=== PATIENT | female | born 1970 | race Two or more races ===

== ENCOUNTER 2018-03-27 14:50 | Outpatient (CLI) | payer OTHER | END 2018-03-27 14:59 | disposition home or self-care (01) | LOC: RAD 501 14:50 | DX: M19.042 Primary osteoarthritis, left hand (principal); M65.332 Trigger finger, left middle finger ==

== ENCOUNTER 2023-08-27 11:40 | Outpatient (CLI) | payer OTHER | END 2023-08-27 11:41 | disposition home or self-care (01) | LOC: NUCLEAR 11:40 | PROVIDERS: ATTEND Family Medicine | DX: I87.2 Venous insufficiency (chronic) (peripheral) (principal) ==

== ENCOUNTER 2024-03-26 08:04 | Outpatient (CLI) | payer OTHER | END 2024-03-26 08:15 | disposition home or self-care (01) | LOC: SONOGRAMA 08:04 | PROVIDERS: ATTEND Internal Medicine Gastroenterology | DX: R10.2 Pelvic and perineal pain (principal); R16.1 Splenomegaly, not elsewhere classified; E03.8 Other specified hypothyroidism ==

== ENCOUNTER 2024-11-04 08:33 | Outpatient (CLI) | payer OTHER | END 2024-11-04 08:34 | disposition home or self-care (01) | LOC: SONOGRAMA 08:33 | PROVIDERS: ATTEND Obstetrics & Gynecology Gynecology | DX: R10.2 Pelvic and perineal pain (principal) ==